=== PATIENT | male | born 1945 | race Caucasian/White ===

== ENCOUNTER 2017-03-16 07:53 | Day surgery (SDC) | payer MEDICARE, OTHER ==
[~2017-03-16] VITALS: Ht 162.6 cm; Wt 66.8 kg
[~2017-03-16 07:53] MED LIST: ASPI81CH PO; HYDR1TAB94; MULVITMIND PO; PROM25S; TADA10TA
== END 2017-03-16 23:01 | disposition home or self-care (01) ==
LOC: ORSCSDS 07:53
PROVIDERS: Otolaryngology
PROC: 09BM0ZZ Excision of Nasal Septum, Open Approach (ICD-10-PCS; principal; 2017-03-16 09:00)
PROC: 09TL0ZZ Resection of Nasal Turbinate, Open Approach (ICD-10-PCS; principal; 2017-03-16 09:00)
DX: J34.2 Deviated nasal septum (principal); J34.3 Hypertrophy of nasal turbinates; Z87.891 Personal history of nicotine dependence; Z79.82 Long term (current) use of aspirin
CPT/HCPCS: J0171; J1100; J2250; J2405; J3010; J7120

== ENCOUNTER → 2018-03-07 | Outpatient (CLI) | payer MEDICARE, OTHER | END | disposition home or self-care (01) | LOC: PLD 14:13 → LAB SHORT 14:13 | DX: D48.5 Neoplasm of uncertain behavior of skin (principal) | CPT/HCPCS: 88305 ==

== ENCOUNTER 2018-06-12 14:20 | Day surgery (SDC) | payer MEDICARE, OTHER | END 2018-06-12 22:51 | disposition home or self-care (01) | LOC: RAD 14:20 | DX: M75.121 Complete rotator cuff tear or rupture of right shoulder, not specified as traumatic (principal); M19.011 Primary osteoarthritis, right shoulder | CPT/HCPCS: 20610; 73222; 77002; A9577; Q9967 ==

== ENCOUNTER 2020-05-12 10:13 | Day surgery (SDC) | payer MEDICARE, OTHER ==
[~2020-05-12] VITALS: Ht 165.1 cm; Wt 65.1 kg
--- NOTE | 2020-05-12 11:19 | NUR ---
05/12/20 1119 Alyes Albert PT. INSTRUCTED ON HOME DISCHARGE INSTRUCTIONS, INCENTIVE SPIROMETRY, WITH UNDERSTANDING. PT. ALSO INSTRUCTED ON WHAT TO EXPECT COMING OUT FROM SURGERY. QUESTIONS ANSWERED & CALL LIGHT IS WITHIN REACH. PT. INSTRUCTED TO CALL IF NEEDED ANYTHING WHILE WAITING FOR HIS SURGERY. PT. WAS NOTIFIED THAT WAS RUNNING A LITTLE BEHIND.
--- NOTE | 2020-05-12 13:05 | NUR ---
05/12/20 1305 Viry Sanon EPI 1MG ADDED TO FIRST 3 BAGS OF LR USED FOR JOINT IRRIGATION.
== END 2020-05-12 14:39 | disposition home or self-care (01) ==
LOC: ORSCSDS 10:13
PROVIDERS: Orthopaedic Surgery
PROC: 0LQ14ZZ Repair Right Shoulder Tendon, Percutaneous Endoscopic Approach (ICD-10-PCS; principal; 2020-05-12 11:30)
PROC: 0RNJ4ZZ Release Right Shoulder Joint, Percutaneous Endoscopic Approach (ICD-10-PCS; principal; 2020-05-12 11:30)
DX: M75.121 Complete rotator cuff tear or rupture of right shoulder, not specified as traumatic (principal); M75.21 Bicipital tendinitis, right shoulder; M75.41 Impingement syndrome of right shoulder; K21.9 Gastro-esophageal reflux disease without esophagitis; Z79.82 Long term (current) use of aspirin
CPT/HCPCS: C1713; J0171; J0690; J1100; J2001; J2250; J2370; J2405; J2704; J2710; J3010; J7120

== ENCOUNTER 2021-02-17 06:53 | Day surgery (SDC) | payer MEDICARE, OTHER ==
[~2021-02-17] VITALS: Ht 165.1 cm; Wt 63.7 kg
[2021-02-17] MEDS ORDERED: ASPI81CH (07:11)
[2021-02-17] MEDS ORDERED: Cialis2.5 MG (07:11)
[2021-02-17] MEDS ORDERED: TIMO.25OPS (07:12)
[2021-02-17] MEDS ORDERED: LATA.005SO (07:13)
== END 2021-02-17 08:49 | disposition home or self-care (01) ==
LOC: ORSCSDS 06:53
PROVIDERS: Surgery
PROC: 0DJD8ZZ Inspection of Lower Intestinal Tract, Via Natural or Artificial Opening Endoscopic (ICD-10-PCS; principal; 2021-02-17 08:00)
DX: Z12.11 Encounter for screening for malignant neoplasm of colon (principal); Z86.010 Personal history of colon polyps; Z87.891 Personal history of nicotine dependence; Z79.899 Other long term (current) drug therapy; Z79.82 Long term (current) use of aspirin
CPT/HCPCS: J2704; J7120

== ENCOUNTER → 2023-06-12 | Outpatient (CLI) | payer MEDICARE, OTHER ==
[~2023-06-12] MED LIST changes: +ASPI81CH; +Cialis2.5 MG; +LATA.005SO; +TIMO.25OPS
[2023-06-13 11:55] LABS: Stool Occult Blood Guaiac 1 Neg (Neg); Stool Occult Blood Guaiac 2 Neg (Neg)
[2023-06-13 11:56] LABS: Stool Occult Blood Guaiac 3 Neg (Neg)
== END | disposition home or self-care (01) ==
LOC: LAB SHORT 16:15 → LAB 16:15
PROVIDERS: Internal Medicine
DX: D64.9 Anemia, unspecified (principal)
CPT/HCPCS: 82272

== ENCOUNTER → 2023-06-16 | Outpatient (CLI) | payer MEDICARE, OTHER ==
[2023-06-25 19:21] LABS: HOURS COLLECTED 24 hr; TOTAL PROTEIN,URINE-PER VOLUME 7 mg/dL; TOTAL VOLUME 1000 mL; URINE 24 HOUR PROTEIN 70 mg/d (40-150)
== END | disposition home or self-care (01) ==
LOC: LAB SHORT 13:00 → LAB 13:00
PROVIDERS: Internal Medicine
DX: R79.89 Other specified abnormal findings of blood chemistry (principal)
CPT/HCPCS: 81050; 84156; 84166; 86335

== ENCOUNTER → 2023-06-27 | Outpatient (CLI) | payer MEDICARE, OTHER | LOC: LAB 11:37 → LAB SHORT 11:37 → LAB FUT 06-01 14:25 | DX: D72.819 Decreased white blood cell count, unspecified (principal); R79.89 Other specified abnormal findings of blood chemistry ==